=== PATIENT | male | born 1995 | race Caucasian/White ===

== ENCOUNTER 2018-12-24 12:02 | Emergency (ER) | payer MEDICAID, OTHER ==
[2018-12-24] MEDS: IBUPROFEN 800 MG TAB PO (13:05)
== END 2018-12-24 13:59 | disposition home or self-care (01) ==
LOC: FTE 12:02
DX: S13.4XXA Sprain of ligaments of cervical spine, initial encounter (principal); V49.59XA Passenger injured in collision with other motor vehicles in traffic accident, initial encounter
CPT/HCPCS: 72040; 72072; 99283-25